=== PATIENT | female | born 2000 | race Caucasian/White ===

== ENCOUNTER 2023-12-10 14:30 | Outpatient (AMB) | payer OTHER, SELFPAY ==
--- NOTE | 2023-12-10 14:35 | MHC.PC.OV ---
Vital Signs 12/10/23 14:44 Height 5 ft 3.11 in Weight 150 lb 6 oz BMI 26.5 BP 119/87 Blood Pressure Location Lt brachial Position Sitting Respiration 14 Pulse 102 H Pulse Source Pulse Oximeter Temp 97.3 F Temp Source Temporal Artery Scan Pulse Oximetry (%) 99 Oxygen Delivery Method Room Air Intake Visit Reasons: Establish Care not a transfer Intake Note: New patient visit Classification Analyst Required: No Allergies No Known Allergies Allergy (Verified 12/10/23 14:35) Medication List - Last Reconciled 12/10/23 by Asiya Chris PA-C albuterol sulfate 90 mcg/actuation 2 puffs inhalation Q6H PRN tgnuyqufgne-kehpmkjvo-uddxudwc 200-62.5-25 mcg (Trelegy Ellipta) 1 ea inhalation DAILY levocetirizine (Xyzal) 5 mg PO DAILY norethindrone ac-eth estradiol 1-20 mg-mcg (Junel) 1 tab PO DAILY omalizumab (Xolair) mg subcut Tobacco use date assessed: 12/10/23 Dental Screening Dental Screen Date: 12/10/23 Did you have a dental visit in the last 12 months?: Yes Did you have a dental problem in the last 6 months where you did not have access to dental care?: No Was dental information given to patient?: Patient has dentist HPI Establish Care not a transfer HPI Details Pt is a 23 y/o female who presents today to establish care. She states she is transferring from [facility]. She states that she numerous allergies, asthma, insomnia, adhd, depression and anxiety. Allergy/immunology: follows with KARTHIK for numerous allergies and asthma. Psych: she states she has insomnia, adhd, anxiety and depression. She had a seizure on 600 mg of wellbutrin. She did not tolerate fluoxetine. She trialed straterra which is ineffective. She has taken trazodone for sleep which was not that helpful. She finds THC and melatonin work better. General: She states her mom was recently dx with diabetes and she is worried she could have diabetes. She used her moms glucometer and the at reading was just above 100. She states that she gets tired throughout the day and then will eat something and feel more energetic. 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 She has never had a pap. 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 [facility] Medical History (Updated 12/10/23 @ 15:26 by Asiya Chris PA-C) Moderate asthma with allergic rhinitis without complication Family History (Updated 12/10/23 @ 14:42 by Marely Nino CMA) Paternal Uncle Substance use Depression Anxiety Father Depression Anxiety Paternal Aunt Depression Anxiety Paternal Grandfather Depression Anxiety Paternal Grandmother Depression Anxiety Other FH: mental illness Social History (Updated 12/10/23 @ 14:41 by Marely Nino CMA) Housing: House Patient Tobacco Use Status: Never used Tobacco e-Cigarette/Vaping Use: Never Used Second Hand Smoke Exposure: No Substance Use Type: Marijuana service: No 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 1. Little interest or pleasure in doing things: several days 2. Feeling down, depressed, or hopeless: several days 3. Trouble falling or staying asleep, or sleeping too much: nearly every day 4. Feeling tired or having little energy: nearly every day 5. Poor appetite or overeating: more than half the days 6. Feeling bad about yourself - or that you are a failure or have let yourself or your family down: not at all 7. Trouble concentrating on things, such as reading the newspaper or watching television: nearly every day 8. Moving or speaking so slowly that other people could have noticed. Or the opposite - being so fidgety or restless that you have been moving around a lot more than usual: several days 9. Thoughts that you would be better off or of hurting yourself in some way: not at all Total score: 14 Depression Screening Interpretation: Positive Depression Screening Follow-up: Existing condition Depression Screening Done: Yes 60380 - PHQ-9 Billing: Yes Source: Developed by Drs. Lane Lyn, Summer Garcia, Lavon Abraham and colleagues, with an educational edson from [employer]. AUDIT C Alcohol Use Questionnaire (AUDIT-C) 1. How often do you have a drink containing alcohol?: 2-4 times a month 2. How many drinks containing alcohol do you have on a typical day when you are drinking?: 3 or 4 3. How often do you have six or more drinks on one occasion?: Never Total Score: 3 PAWAN-7 AMB Questionnaire PAWAN-7 Feeling nervous, anxious, or on edge: 1 = Several days Not being able to stop or control worryin = Several days Worrying too much about different things: 1 = Several days Trouble relaxin = Several days Being so restless that it is hard to sit still: 1 = Several days Becoming easily annoyed or irritable: 1 = Several days Feeling afraid as if something awful might happen: 1 = Several days Total PAWAN-7 score (0-4 normal; 5-9 mild; 10-14 moderate; 15-21 severe): 7 Source: Developed by Drs. Lane Lyn, Summer Garcia, Lavon Abraham and colleagues, with an educational edson from [employer]. PAWAN-7 Assessment Billing PAWAN-7 Assessment Tool: PAWAN-7 Assessment 69562 ACT Questionnaire In the past 4 weeks, how much of the time did your asthma keep you from getting as much done at work, school or at home?: A little of the time During the past 4 weeks, how often have you had shortness of breath?: 1-2 times a week During the past 4 weeks, how often did your asthma symptoms wake you up at night or earlier than usual in the morning?: Not at all During the past 4 weeks, how often have you had to use your rescue inhaler or nebulizer medication?: Once a week or less How would you rate your asthma control during the past 4 weeks?: Well controlled ACT Interpretation: Positive Score: 21 Physical exam (Primary Care) Vital Signs: Last Vital Signs Temp 97.3 F 12/10/23 14:44 Pulse 102 H 12/10/23 14:44 Resp 14 12/10/23 14:44 BP 119/87 12/10/23 14:44 Pulse Ox 99 12/10/23 14:44 Oxygen Delivery Method Room Air 12/10/23 14:44 BMI result Body Mass Index 26.5 Tobacco/Smoking Status: Tobacco use Status Tobacco use date assessed 12/10/23 12/10/23 14:49 Patient Tobacco Use Status Never used Tobacco 12/10/23 14:49 e-Cigarette/Vaping Use Never Used 12/10/23 14:49 Depression Screening Interpretation: Positive Depression Screening Follow-up: Existing condition Const Orientation/consciousness: patient oriented x3 HENMT Ears: hearing grossly normal bilaterally Neck Thyroid: Thyroid normal Lymphatic: no lymphadenopathy noted Resp Auscultation: clear to auscultation bilaterally Cardio Rate: regular rate Rhythm: regular rhythm Heart sounds: S1 normal heart sound present and S2 normal heart sound present GI Inspection: Yes normal to inspection Palpation (GI): Soft to palpation and Other GI palpation findings present (nontender, no cva tenderness) Auscultation: normoactive bowel sounds Rectal Exam - Female: deferred Skin General skin exam: no rashes or lesions noted Neuro General: patient oriented x3, gait normal and no focal motor deficits Assessment and Plan Assessment & Plan (1) Fatigue: Code(s): R53.83 - Other fatigue Qualifiers: Fatigue type: chronic, unspecified Qualified Code(s): R53.82 - Chronic fatigue, unspecified Plan: Declines sleep study right now. We did discuss that possibly the THC and melatonin were making her feel tired but she does not think so. She would like labs. Ordered today. We will follow up pending test results. (2) Insomnia: Code(s): G47.00 - Insomnia, unspecified Plan: As above. Offered referral to Psychiatry but declines at this point. (3) Concentration deficit: Code(s): R41.840 - Attention and concentration deficit Plan: As above (4) Anxiety with depression: Code(s): F41.8 - Other specified anxiety disorders Plan: Currently controlled with coping mechanisms. Denies any SI/HI. (5) Multiple environmental allergies: Code(s): Z91.09 - Other allergy status, other than to drugs and biological substances Plan: Continue following up with Allergy and immunology (6) Moderate asthma with allergic rhinitis without complication: Code(s): J45.909 - Unspecified asthma, uncomplicated Qualifiers: Asthma persistence: persistent Qualified Code(s): J45.40 - Moderate persistent asthma, uncomplicated Plan: As above (7) IFG (impaired fasting glucose): Code(s): R73.01 - Impaired fasting glucose Plan: Labs ordered today including A1c. Orders: Orders Complete Blood Count Auto Diff Today F41.8 - Other specified anxiety disorders, G47.00 - Insomnia, unspecified, J45.909 - Unspecified asthma, uncomplicated, R41.840 - Attention and concentration deficit, R53.83 - Other fatigue, Z91.09 - Other allergy status, other than to drugs and biological substances Comprehensive [place]. Panel Fast Today F41.8 - Other specified anxiety disorders, G47.00 - Insomnia, unspecified, J45.909 - Unspecified asthma, uncomplicated, R41.840 - Attention and concentration deficit, R53.83 - Other fatigue, Z91.09 - Other allergy status, other than to drugs and biological substances Ferritin Today F41.8 - Other specified anxiety disorders, G47.00 - Insomnia, unspecified, J45.909 - Unspecified asthma, uncomplicated, R41.840 - Attention and concentration deficit, R53.83 - Other fatigue, Z91.09 - Other allergy status, other than to drugs and biological substances Lipid Panel Today F41.8 - Other specified anxiety disorders, G47.00 - Insomnia, unspecified, J45.909 - Unspecified asthma, uncomplicated, R41.840 - Attention and concentration deficit, R53.83 - Other fatigue, Z91.09 - Other allergy status, other than to drugs and biological substances Vitamin B12 and Folate Today F41.8 - Other specified anxiety disorders, G47.00 - Insomnia, unspecified, J45.909 - Unspecified asthma, uncomplicated, R41.840 - Attention and concentration deficit, R53.83 - Other fatigue, Z91.09 - Other allergy status, other than to drugs and biological substances IRON PROFILE Today F41.8 - Other specified anxiety disorders, G47.00 - Insomnia, unspecified, J45.909 - Unspecified asthma, uncomplicated, R41.840 - Attention and concentration deficit, R53.83 - Other fatigue, Z91.09 - Other allergy status, other than to drugs and biological substances Cortisol Random Today F41.8 - Other specified anxiety disorders, G47.00 - Insomnia, unspecified, J45.909 - Unspecified asthma, uncomplicated, R41.840 - Attention and concentration deficit, R53.83 - Other fatigue, Z91.09 - Other allergy status, other than to drugs and biological substances Hemoglobin A1c Today F41.8 - Other specified anxiety disorders, G47.00 - Insomnia, unspecified, J45.909 - Unspecified asthma, uncomplicated, R41.840 - Attention and concentration deficit, R53.83 - Other fatigue, R73.01 - Impaired fasting glucose, Z91.09 - Other allergy status, other than to drugs and biological substances Magnesium Today F41.8 - Other specified anxiety disorders, G47.00 - Insomnia, unspecified, J45.909 - Unspecified asthma, uncomplicated, R41.840 - Attention and concentration deficit, R53.83 - Other fatigue, Z91.09 - Other allergy status, other than to drugs and biological substances TSH reflex Free T4 Today F41.8 - Other specified anxiety disorders, G47.00 - Insomnia, unspecified, J45.909 - Unspecified asthma, uncomplicated, R41.840 - Attention and concentration deficit, R53.83 - Other fatigue, Z91.09 - Other allergy status, other than to drugs and biological substances Vitamin D 1,25 dihydroxy Today F41.8 - Other specified anxiety disorders, G47.00 - Insomnia, unspecified, J45.909 - Unspecified asthma, uncomplicated, R41.840 - Attention and concentration deficit, R53.83 - Other fatigue, Z91.09 - Other allergy status, other than to drugs and biological substances Insulin Today F41.8 - Other specified anxiety disorders, G47.00 - Insomnia, unspecified, J45.909 - Unspecified asthma, uncomplicated, R41.840 - Attention and concentration deficit, R53.83 - Other fatigue, Z91.09 - Other allergy status, other than to drugs and biological substances Referrals PLAYGROUND DIRECTOR Referral Z01.419 - Encounter for gynecological examination (general) (routine) without abnormal findings Podiatry Referral M21.41 - Flat foot [pes planus] (acquired), right foot, M21.42 - Flat foot [pes planus] (acquired), left foot Coding Level of Care Code New Pt Level 4 (57044) Complex EM visit Add On G2211 Diagnoses Chronic fatigue R53.82 Fatigue type: chronic, unspecified Insomnia G47.00 Concentration deficit R41.840 Anxiety with depression F41.8 Multiple environmental allergies Z91.09 Moderate persistent asthma with allergic rhinitis without complication J45.40 Asthma persistence: persistent IFG (impaired fasting glucose) R73.01 Additional Codes PAWAN-7 Assessment Billing - PAWAN-7 Assessment Tool: PAWAN-7 Assessment 07647 ([id number])
[2023-12-10 14:44] VITALS: BP 119/87; PULSE 102; RESP 14; TEMP 36.3; O2SAT 99; BMI 26.5
== END 2023-12-10 15:24 | disposition home or self-care (01) ==
PROVIDERS: Visit Provider Physician Assistant
DX: R53.82 Chronic fatigue, unspecified (principal); G47.00 Insomnia, unspecified; R41.840 Attention and concentration deficit; F41.8 Other specified anxiety disorders; Z91.09 Other allergy status, other than to drugs and biological substances; J45.40 Moderate persistent asthma, uncomplicated; R73.01 Impaired fasting glucose
CPT/HCPCS: 99204

== ENCOUNTER 2023-12-11 10:43 | Outpatient (REF) | payer OTHER, SELFPAY ==
[2023-12-11 14:20] LABS: MANUAL DIFF FLAG NO
[2023-12-11 14:24] LABS: Basophils Percent Auto 0.5 % (0-2); Eosinophils Absolute Auto 0.3 X10*3/uL (0.0-0.4); Eosinophils Percent Auto 4.4 % (0-4); Hematocrit 43.7 % (37.0-47.0); Hemoglobin 14.8 g/dl (12.0-16.0); Imm Gran Abs Auto 0.04 X10*3/uL (0.00-0.03); Imm Gran Pct Auto 0.5 % (0.0-0.4); Lymphocytes Percent Auto 38.6 % (20-40); Mean Corpuscular HGB Conc 33.9 g/dl (31.0-35.0); Mean Corpuscular Hemoglobin 30.1 pg (27.0-33.0); Mean Corpuscular Volume 88.8 fL (80.0-98.0); Monocytes Absolute Auto 0.5 X10*3/uL (0.1-1.2); Monocytes Percent Auto 5.9 % (2-11); NRBC Pct Auto 0.3 /100WBC (0.0-0.2); Neutrophils Absolute Auto 3.8 x10*3/uL (2.0-8.3); Neutrophils Percent Auto 50.1 % (45-73); Platelet Count 302 X10*3/uL (160-400); Red Blood Count 4.92 X10*6/uL (4.20-5.50); White Blood Count 7.7 X10*3/uL (4.8-10.8)
[2023-12-11 14:40] LABS: Estimated Average Glucose 126 mg/dL
[2023-12-11 14:47] LABS: Alanine Aminotransferase 30 U/L (0-31); Albumin Level 4.1 g/dL (3.5-5.0); Alkaline Phosphatase 57 U/L (39-117); Anion Gap 14 (12-20); Aspartate Amino Transferase 20 U/L (5-31); Bilirubin Total 0.7 mg/dL (0.0-1.0); Blood Urea Nitrogen 14 mg/dL (9-16); Calcium 9.3 mg/dL (8.4-10.2); Carbon Dioxide 23 mmol/L (22-29); Chloride 105 mmol/L (96-108); Cholesterol 280 mg/dL (<200); Estimated Glomerular Filt Rate > 60; Glucose Fasting 101 mg/dL (60-99); HDL Cholesterol 44 mg/dL (>40); Iron 139 mcg/dL (30-160); LDL Cholesterol Calculated 189 mg/dL (<100); Magnesium 2.1 mg/dL (1.6-2.6); Percent Iron Saturation 38 % (15-50); Potassium 3.8 mmol/L (3.3-5.1); Sodium 138 mmol/L (135-145); Total Iron Binding Capacity 365 mcg/dL (228-428); Total Protein 7.6 g/dL (6.5-8.0); Triglycerides 239 mg/dL (<150); Unsaturated Iron Binding 226 ug/dL
[2023-12-11 15:09] LABS: Ferritin 115 ng/mL (10-122); Insulin 13 uU/mL (2-29); TSH reflex Free T4 1.76 uIU/mL (0.32-4.0)
[2023-12-11 15:12] LABS: Folate 7.6 ng/mL (> or = 4.0); Vitamin B12 261 pg/mL (200-900)
[2023-12-11 15:20] LABS: Cortisol Random 14.4 ug/dL
[2023-12-16 17:23] LABS: VITAMIN D (1,25 OH) D3 57 pg/mL; Vit D (1,25-Dihydroxy) Total 57 pg/mL (18-72); Vitamin D (1,25 OH) D2 <8 pg/mL
== END 2023-12-11 10:44 | disposition home or self-care (01) ==
LOC: HO.WFDLDS 10:43
PROVIDERS: Visit Provider Physician Assistant
DX: R53.83 Other fatigue (principal); G47.00 Insomnia, unspecified; R41.840 Attention and concentration deficit; F41.8 Other specified anxiety disorders; Z91.09 Other allergy status, other than to drugs and biological substances; J45.909 Unspecified asthma, uncomplicated; R73.01 Impaired fasting glucose
CPT/HCPCS: 36415; 80053; 80061; 82533; 82607; 82652; 82728; 82746; 83036; 83525; 83540; 83735; 84443; 85025

== ENCOUNTER 2024-03-11 15:08 | Outpatient (AMB) | payer OTHER, SELFPAY ==
[2024-03-11 15:23] VITALS: BP 106/64; PULSE 80; RESP 14; BMI 26.9
--- NOTE | 2024-03-11 15:23 | MHC.PC.OV ---
Vital Signs 03/11/24 15:23 Height 5 ft 3 in Weight 152 lb BMI 26.9 BP 106/64 Blood Pressure Location Rt brachial Position Sitting Respiration 14 Pulse 80 Pulse Source Auscultation Intake Visit Reasons: f/u labs and fatigue, Physical Allergies No Known Allergies Allergy (Verified 12/10/23 14:35) Medication List - Last Reconciled 03/11/24 by Asiya Chris PA-C albuterol sulfate 90 mcg/actuation 2 puffs inhalation Q6H PRN cyanocobalamin (vitamin B-12) 1,000 mcg PO DAILY bseutfhigmb-qmtpvobxj-qnymyvhi 200-62.5-25 mcg (Trelegy Ellipta) 1 ea inhalation DAILY levocetirizine (Xyzal) 5 mg PO DAILY norethindrone ac-eth estradiol 1-20 mg-mcg (Junel) 1 tab PO DAILY omalizumab (Xolair) mg subcut Tobacco use date assessed: 12/10/23 Dental Screening Dental Screen Date: 12/10/23 HPI f/u labs and fatigue, Physical HPI Details Patient is a 24-year-old female who presents today for a physical exam. She has a history of hyperlipidemia, B12 deficiency, impaired fasting glucose, asthma, environmental allergies and anxiety with depression. 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 States that she is feeling a lot better. Most of her stressors right now are figuring out a new job and/or going back to school. She also was interested in moving to [place]. She states she is thinking about doing graduate school there. PULM: Asthma is currently well-controlled with current regimen. CV: She has somewhat been following a low-fat diet but not overly. She says that she could do better with this. She did eat Vietnamese food last night but is interested to know what her cholesterol looks like. 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 [facility] Medical History (Updated 03/11/24 @ 15:30 by Asiya Chris PA-C) Moderate asthma with allergic rhinitis without complication Family History (Updated 12/10/23 @ 14:42 by Marely Nino CMA) Paternal Uncle Substance use Depression Anxiety Father Depression Anxiety Paternal Aunt Depression Anxiety Paternal Grandfather Depression Anxiety Paternal Grandmother Depression Anxiety Other FH: mental illness Social History (Updated 12/10/23 @ 14:41 by INOCENCIO Lewis Housing: House Patient Tobacco Use Status: Never used Tobacco e-Cigarette/Vaping Use: Never Used Second Hand Smoke Exposure: No Substance Use Type: Marijuana service: No 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 1. Little interest or pleasure in doing things: several days 2. Feeling down, depressed, or hopeless: several days 3. Trouble falling or staying asleep, or sleeping too much: several days 4. Feeling tired or having little energy: several days 5. Poor appetite or overeating: not at all 6. Feeling bad about yourself - or that you are a failure or have let yourself or your family down: not at all 7. Trouble concentrating on things, such as reading the newspaper or watching television: several days 8. Moving or speaking so slowly that other people could have noticed. Or the opposite - being so fidgety or restless that you have been moving around a lot more than usual: not at all 9. Thoughts that you would be better off or of hurting yourself in some way: not at all Total score: 5 Depression Screening Interpretation: Positive Depression Screening Follow-up: Existing condition and Declines treatment Depression Screening Done: Yes 27448 - PHQ-9 Billing: Yes Source: Developed by Drs. Lane Lyn, Summer Garcia, Lavon Abraham and colleagues, with an educational edson from [employer]. Thrive Questionnaire I am a: Patient What is your living situation today?: I have a steady place to live Within the past 12 months, did the food you bought not last and you didn't have the money to get more?: Never true Within the past 12 months, did you worry whether your food would run out before you got money to buy more?: Never true Do you have trouble paying for medicines?: No Do you have trouble getting transportation to medical appointments?: No Do you have trouble paying your heating and electricity bill?: No Do you have trouble taking care of your child, family member or friend?: No Do you have trouble with day-to-day activities such as bathing, preparing meals, shopping, managing finances, etc.?: No Are you currently unemployed and looking for a job?: Yes Are you interested in more education?: Yes Please select the resources that you would like help with: None Currently or been in a relationship where the following occur: No concerns reported THRIVE Score: 0 AUDIT C Alcohol Use Questionnaire (AUDIT-C) 1. How often do you have a drink containing alcohol?: Monthly or less 2. How many drinks containing alcohol do you have on a typical day when you are drinking?: 1 or 2 3. How often do you have six or more drinks on one occasion?: Never Total Score: 1 PAWAN-7 AMB Questionnaire PAWAN-7 Feeling nervous, anxious, or on edge: 3 = Nearly every day Not being able to stop or control worryin = Nearly every day Worrying too much about different things: 3 = Nearly every day Trouble relaxin = Nearly every day Being so restless that it is hard to sit still: 3 = Nearly every day Becoming easily annoyed or irritable: 3 = Nearly every day Feeling afraid as if something awful might happen: 2 = More than half the days Total PAWAN-7 score (0-4 normal; 5-9 mild; 10-14 moderate; 15-21 severe): 20 Source: Developed by Drs. Lane Lyn, Summer Garcia, Lavon Abraham and colleagues, with an educational edson from [employer]. PAWAN-7 Assessment Billing PAWAN-7 Assessment Tool: PAWAN-7 Assessment 44789 Physical exam (Primary Care) Tobacco/Smoking Status: Tobacco use Status Tobacco use date assessed 12/10/23 12/10/23 14:49 Patient Tobacco Use Status Never used Tobacco 12/10/23 14:49 e-Cigarette/Vaping Use Never Used 12/10/23 14:49 Depression Screening Interpretation: Positive Depression Screening Follow-up: Existing condition and Declines treatment Currently or been in a relationship where the following occur: No concerns reported Const Orientation/consciousness: patient oriented x3 HENMT Ears: hearing grossly normal bilaterally and TM's normal bilaterally General nose exam: No nasal polyps present Face and sinus: Yes sinuses nontender Mouth: Normal oral and palatal mucosa present Eyes Pupils: Equal, round and reactive pupils present EOM: EOMs intact bilaterally Neck Neck: Yes full ROM and Yes no lymphadenopathy Thyroid: Thyroid normal Chest Chest palpation & inspection: normal inspection of the chest Breast/axilla inspection: normal inspection of the breasts and normal inspection of the axillae Breast/axilla palpation: normal palpation of the breasts, normal palpation of the axillae and no axillary lymphadenopathy Resp Auscultation: clear to auscultation bilaterally Cardio Rate: regular rate Rhythm: regular rhythm Heart sounds: S1 normal heart sound present and S2 normal heart sound present Peripheral pulses: Peripheral pulses 2+ throughout GI Other: Soft, nontender Auscultation: normal bowel sounds Rectal Exam - Female: deferred General: Yes no CVA tenderness Back/Spine/Pelvis Other: Nontender Back: no CVA tenderness Skin General skin exam: no rashes or lesions noted Neuro General: patient oriented x3, gait normal, CN's II-XI intact bilaterally and deep tendon reflexes 2+ bilaterally Cranial nerves: Yes Equal, round and reactive pupils present Motor exam (neuro): 5/5 motor strength present throughout Sensory Exam: double simultaneous stimulation for sensation normal Coordination: cnaxon-ae-tire test normal and Romberg test negative Extrem General: Yes normal to inspection and Yes full ROM Psych Affect: normal affect Attitude: cooperative Thought process: Normal thought process present Thought content: Normal thought content present Insight: Good insight present (Psych) Judgement: Good judgement present (Psych) Coding Level of Care Code Est Pt Prev Care 18-39y(77771) Diagnoses Routine general medical examination at a health care facility Z00.00 B12 deficiency E53.8 Dyslipidemia E78.5 Anxiety with depression F41.8 Additional Codes PHQ-9 - 75024 - PHQ-9 Billing: Yes ([id number]) PAWAN-7 Assessment Billing - PAWAN-7 Assessment Tool: PAWAN-7 Assessment 63917 ([id number]) Assessment & Plan Assessment & Plan (1) Routine general medical examination at a health care facility: Code(s): Z00.00 - Encounter for general adult medical examination without abnormal findings Plan: Health maintenance reviewed. Flu shot today (2) B12 deficiency: Code(s): E53.8 - Deficiency of other specified B group vitamins Category: Medical Plan: Compliant with supplement. Advised to recheck CBC (3) Dyslipidemia: Code(s): E78.5 - Hyperlipidemia, unspecified Category: Medical Plan: Reports somewhat improvement of her diet in his interested to see how her cholesterol looks. (4) Anxiety with depression: Code(s): F41.8 - Other specified anxiety disorders Category: Medical Plan: Has trialed medications in the past and does not feel like she needs anything now. She recently left her job that was exacerbating her anxiety and depression and is going to try to move to [place]. Orders: Orders Lipid Panel Today E53.8 - Deficiency of other specified B group vitamins, E78.5 - Hyperlipidemia, unspecified
== END 2024-03-11 15:46 | disposition home or self-care (01) ==
PROVIDERS: PCP Physician Assistant; Visit Provider Physician Assistant
DX: Z00.00 Encounter for general adult medical examination without abnormal findings (principal); E53.8 Deficiency of other specified B group vitamins; E78.5 Hyperlipidemia, unspecified; F41.8 Other specified anxiety disorders

== ENCOUNTER → 2024-03-11 15:08 | Outpatient (BNVA) | payer OTHER, SELFPAY | PROVIDERS: PCP Physician Assistant; Visit Provider Physician Assistant | DX: Z00.00 Encounter for general adult medical examination without abnormal findings (principal); E53.8 Deficiency of other specified B group vitamins; E78.5 Hyperlipidemia, unspecified; F41.8 Other specified anxiety disorders | CPT/HCPCS: 96127 ==

== ENCOUNTER 2024-03-24 14:32 | Outpatient (AMB) | payer OTHER, SELFPAY ==
[2024-03-24 14:34] VITALS: BP 116/66; BMI 26.9
--- NOTE | 2024-03-24 14:34 | A.OFFVIS_ITS ---
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: No Manufacturing Plant Technician Services: Manufacturing Plant Technician Present Information Interpreted: clinical only Senior Interaction Designer: Senior Interaction Designer Present Allergies No Known Allergies Allergy (Verified 03/24/24 14:37) Medication List - Last Reconciled 03/24/24 by Payton Alvarez CNM albuterol sulfate 90 mcg/actuation 2 puffs inhalation Q6H PRN cyanocobalamin (vitamin B-12) 1,000 mcg PO DAILY iyfjizdluyy-jqrjeycsp-xqobsisj 200-62.5-25 mcg (Trelegy Ellipta) 1 ea inhalation DAILY levocetirizine (Xyzal) 5 mg PO DAILY norethindrone ac-eth estradiol 1-20 mg-mcg (Junel) 1 tab PO DAILY omalizumab (Xolair) mg subcut Is last menstrual period known: Yes Last menstrual period: 03/01/24 HPI HPI New patient Annual: Details: 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 She is very certain that she does ever had kids so she wants to talk about methods of control and especially is concerned about access to control should things change with a coming administration. She recently found out that she is in fact prediabetic than so she is trying to work on diet. She has to be very skinny is a kid and did vena how it when she on control sexually active and went to college etc.. 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 she does note for herself that she feels lots of changes that go on for her with her mental health with her periods and she is very sensitive and tuned in. She has been on control pills for about 7 years now and feels that she is very good at taking on time and does not miss a pill and she typically takes them and always has taken them for 3 weeks continuous and then does not take placebo pills for the last week and then restarts the new pack exactly on time 7 days later. 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: unknown, starting Friday Cognitive needs: No Hearing needs: No Vision needs: No Female Reproductive History Menstrual Age of Menarche: 12 Duration of menses: 3-5 days Date of last menstrual period: 03/01/24 control method: pills Total pregnancies: 0 Full term: 0 History of abnormal pap smear: No (no previous pap) Physical Exam Vital Signs: Last Vital Signs BP 116/66 03/24/24 14:34 BMI result Body Mass Index 26.9 Const General: healthy appearing, comfortable, no acute distress, well developed and alert Nutritional Appearance: average body habitus Orientation/consciousness: patient oriented x3 Limitations: no limitations HEENT Head: Yes normocephalic Neck Neck: Yes normal visual inspection Chest Chest palpation & inspection: normal inspection of the chest Breast/axilla inspection: normal inspection of the breasts and normal inspection of the axillae Breast/axilla palpation: normal palpation of the breasts and normal palpation of the axillae Resp Effort & Inspection: normal respiratory effort GI Inspection: Yes normal to inspection, No Abdominal wall edema and No distended Palpation (GI): Soft to palpation and nontender Other: Normal external exam vagina and moist cervix is nulliparous white reddened normal appearing mucus the abundant cervix long close the nontender uterus midposition nontender not enlarged adnexa nontender nonenlarged extremely good with Kegel, General: Yes bladder normal to palpation External Female Exam: normal external appearance and normal appearance of the urethra Speculum Exam - Vagina: normal appearance of the vagina, normal palpation and normal vaginal discharge Speculum Exam - Cervix: normal appearance of the cervix, normal palpation and nontender Bimanual exam- vagina & uterus: normal bimanual exam, normal palpation, uterine size normal, bladder normal to palpation, consistency normal, normal palpation, uterine mobility normal, uterine shape normal, No Cervical tenderness present, non-tender and no cervical motion tenderness Bimanual Exam- Adnexa, other: normal adnexae, no masses, normal and No adnexal tenderness Neuro General: patient oriented x3 Assessment & Plan Assessment & Plan (1) Encounter for screening examination for sexually transmitted disease: Code(s): Z11.3 - Encounter for screening for infections with a predominantly sexual mode of transmission Category: Medical (2) control counseling: Code(s): Z30.09 - Encounter for other general counseling and advice on contraception Category: Medical (3) Well woman exam with routine gynecological exam: Code(s): Z01.419 - Encounter for gynecological examination (general) (routine) without abnormal findings Category: Medical (4) Cervical cancer screening: Code(s): Z12.4 - Encounter for screening for malignant neoplasm of cervix Category: Medical (5) IFG (impaired fasting glucose): Code(s): R73.01 - Impaired fasting glucose Category: Medical Plan -----Discussed in this visit the following: healthy balanced diet, regular and consistent exercise, getting recommended health screens, doing the best she can for her particular health concerns, kegel exercises, pap smear screening and followup recommendations, mammography screening and SBE, normal changes in cycles in her life stage--- .-I reviewed with the patient, all of the currently common used methods of control that are available. We reviewed how they work in the body, how they are taken, common side effects, uncommon side effects, precautions, and contraindications. -Discussed also factors that influence their effectiveness and use, and womens satisfaction with the method. -Discussed how each are used, and drawbacks of each method as well. -Methods covered included: condoms, control pills, control patches, control rings, Depo-Provera, Nexplanon, Mirena and Kyleena IUDs, and ParaGard IUDs. All of the above methods were covered in great detail including their side effect profiles and common experiences that women have and ways to mitigate against the negative experiences including attention to diet and exercise patient's with bleeding challenges that may occur her and efforts to time the initiation of the method to this start of the menstrual period. Extensive discussion took place then about options for now. We went back and forth about whether not she wanted to stay pills she is on or consider trying something with a very very slightly higher dose of either estrogen progesterone to see if it would ameliorate her periods somewhat she still has to use super tampons. Additionally we discussed the option for long-term use of either a Mirena Kyleena and her cervix was not as tiny and nulliparous as 1 might expect and therefore a Mirena might well be an option for her to consider down road and she is going to think about it also discussed the insertion process in great detail and why it is year and best for her and the provider to insert it as close to the beginning of menses as possible when it is the heaviest additionally discussed the addition use of misoprostol placed vaginally 6 hours before insertion with an additional dose 2 hours before if there is not sufficient cramping. Discussed that this often the insertion process more tolerable as well as ibuprofen for cramps. In the end decision made to change her OCP to a slightly different formulation to see if this would make any difference whatsoever for her and she is going to consider her options she has extra OC packs available to her as well that she may continue with for a while we will see her in 1 year I her to call if she has any difficulties or wants to switch back to what she was originally on. Orders placed for screening for STIs blood work and she getting her fasting blood it for her PCC soon and I added a thyroid level to that as well. Orders: Orders Hepatitis B Surface Antigen Today Z01.419 - Encounter for gynecological examination (general) (routine) without abnormal findings, Z11.3 - Encounter for screening for infections with a predominantly sexual mode of transmission, Z12.4 - Encounter for screening for malignant neoplasm of cervix, Z30.09 - Encounter for other general counseling and advice on contraception Pap Smear Today Z01.419 - Encounter for gynecological examination (general) (routine) without abnormal findings Hepatitis C Antibody Today Z01.419 - Encounter for gynecological examination (general) (routine) without abnormal findings, Z11.3 - Encounter for screening for infections with a predominantly sexual mode of transmission, Z12.4 - Encounter for screening for malignant neoplasm of cervix, Z30.09 - Encounter for other general counseling and advice on contraception HIV Ab/Ag Today Z01.419 - Encounter for gynecological examination (general) (routine) without abnormal findings, Z11.3 - Encounter for screening for infections with a predominantly sexual mode of transmission, Z12.4 - Encounter for screening for malignant neoplasm of cervix, Z30.09 - Encounter for other general counseling and advice on contraception Thyroid Stimulating Hormone Today Z01.419 - Encounter for gynecological exam ination (general) (routine) without abnormal findings, Z11.3 - Encounter for screening for infections with a predominantly sexual mode of transmission, Z12.4 - Encounter for screening for malignant neoplasm of cervix, Z30.09 - Encounter for other general counseling and advice on contraception Syphilis Screen Today Z01.419 - Encounter for gynecological examination (genera l) (routine) without abnormal findings, Z11.3 - Encounter for screening for infections with a predominantly sexual mode of transmission, Z12.4 - Encounter for screening for malignant neoplasm of cervix, Z30.09 - Encounter for other general counseling and advice on contraception CT NG by PCR Today N89.8 - Other specified noninflammatory disorders of vagina, Z20.2 - Contact with and (suspected) exposure to infections with a predominantly sexual mode of transmission Bacterial Vaginosis Panel Today N89.8 - Other specified noninflammatory disord ers of vagina Medications: New desog-e.estradiol/e.estradiol 0.15-0.02 mgx21 /0.01 mg x 5 1 tab PO DAILY 84 tabs 0RF Coding Level of Care Code New Pt Prev Care 18-39yr([id number] Diagnoses Encounter for screening examination for sexually transmitted disease Z11.3 control counseling Z30.09 Well woman exam with routine gynecological exam Z01.419 Cervical cancer screening Z12.4 IFG (impaired fasting glucose) R73.01
== END 2024-03-24 15:37 | disposition home or self-care (01) ==
LOC: HO.HWSM 14:32
PROVIDERS: PCP Physician Assistant; Visit Provider Advanced Practice Midwife
DX: Z01.419 Encounter for gynecological examination (general) (routine) without abnormal findings (principal); Z11.3 Encounter for screening for infections with a predominantly sexual mode of transmission; Z30.09 Encounter for other general counseling and advice on contraception; Z12.4 Encounter for screening for malignant neoplasm of cervix; R73.01 Impaired fasting glucose
CPT/HCPCS: 99385

== ENCOUNTER 2024-03-24 14:32 | Outpatient (REF) | payer OTHER, SELFPAY | END 2024-03-24 14:33 | disposition home or self-care (01) | LOC: HO.LNP 14:32 | PROVIDERS: PCP Physician Assistant; Visit Provider Advanced Practice Midwife | DX: Z01.419 Encounter for gynecological examination (general) (routine) without abnormal findings (principal) | CPT/HCPCS: 88175 ==

== ENCOUNTER 2024-03-24 15:34 | Outpatient (REF) | payer OTHER, SELFPAY ==
[2024-03-25 02:36] LABS: CT PCR NOT DETECTED (Not Detect.); NG PCR NOT DETECTED (Not Detect.)
[2024-03-25 10:07] LABS: Bacterial Vaginosis PCR NEGATIVE (Negative); Candida Group PCR NOT DETECTED (Not Detect); Candida glab krusei PCR NOT DETECTED (Not Detect); Trichomonas vaginalis PCR NOT DETECTED (Not Detect)
== END 2024-03-24 15:35 | disposition home or self-care (01) ==
LOC: HO.LAB 15:34
PROVIDERS: Visit Provider Advanced Practice Midwife
DX: Z01.419 Encounter for gynecological examination (general) (routine) without abnormal findings (principal); N89.8 Other specified noninflammatory disorders of vagina; Z20.2 Contact with and (suspected) exposure to infections with a predominantly sexual mode of transmission
CPT/HCPCS: 0352U; 87491; 87591

== ENCOUNTER 2025-02-10 09:37 | Outpatient (AMB) | payer OTHER, SELFPAY ==
--- NOTE | 2025-02-10 09:40 | A.OFFVIS_ITS ---
Vital Signs 02/10/25 09:57 Height 5 ft 3 in Weight 125 lb BMI 22.1 BP 102/70 Intake Visit Reasons: BC Image Editor: Image Editor Present (Princess) Accompanied by: Self / Same As Patient Allergies No Known Allergies Allergy (Verified 03/24/24 14:37) Medication List - Last Reconciled 02/10/25 by Payton Alvarez CNM albuterol sulfate 90 mcg/actuation 2 puffs inhalation Q6H PRN albuterol sulfate 2.5 mg (3 mL) inhalation Q4-6H PRN 30 days cyanocobalamin (vitamin B-12) 1,000 mcg PO DAILY desog-e.estradiol/e.estradiol 0.15-0.02 mgx21 /0.01 mg x 5 1 tab PO DAILY gwytriwffse-hazaorxvr-ukfooctd 200-62.5-25 mcg (Trelegy Ellipta) 1 ea inhalation DAILY levocetirizine (Xyzal) 5 mg PO DAILY norethindrone ac-eth estradiol 1-20 mg-mcg (Junel) 1 tab PO DAILY omalizumab (Xolair) mg subcut Is last menstrual period known: Yes Last menstrual period: 01/27/25 Post menopausal: No Patient : No HPI HPI BC: Details: Patient is here to discuss the control pills. She switched control pill formulations last year and she feels that her period is not as dependable in that it comes after she expects with a week of pills and it is she would like to go back to the which was the formulation she was on before and she actually would like to be on the 21 day pills and she did well always skipping the week and that served her well and she would like to go back to that.. She also wanted to talk about the thinning of her hair on her scalp often noticed so at the crown of her head though it is not as visible there today it is a little bit visible at the very top of her head and frontally. I offered testing for testosterone and TSH and CBC just because of her heavy periods though she had a normal CBC and TSH last year. But then she reconsidered because she has just changed insurances and she wants to be very judicious about getting her lab work and any testing and appointments done she will be seeing her primary care provider in February and she has an appointment with me for an annual in March so I recommend she continue this discussion with her primary care provider and consider whether not endocrinology would be a good referral for her and a we will see what other things there are to address at the next visit when I see her. I recommend she finish out what ever pack she is on she is more than shelter through and then start fresh with a new OCPs as appropriate. [facility] Medical History Moderate asthma with allergic rhinitis without complication Family History Paternal Uncle Substance use Depression Anxiety Father Depression Anxiety Paternal Aunt Depression Anxiety Paternal Grandfather Depression Anxiety Paternal Grandmother Depression Anxiety Other FH: mental illness Social History Housing: House Patient Tobacco Use Status: Never used Tobacco e-Cigarette/Vaping Use: Never Used Second Hand Smoke Exposure: No Substance Use Type: Marijuana Patient : No service: No Current occupational status: employed Current occupation: unknown, starting Friday Cognitive needs: No Hearing needs: No Vision needs: No Female Reproductive History Menstrual Age of Menarche: 12 Date of last menstrual period: 01/27/25 control method: pills Physical Exam Vital Signs: Last Vital Signs BP 102/70 02/10/25 09:57 BMI result Body Mass Index 22.1 Results Reviewed Results Reviewed: Name: Annia Frias Age/Sex: 24/F Attending: Payton Alvarez CNM : 2000 Submitted by: Payton Alvarez CNM Copies to: [facility] MR #: [id number] Status: DEP REF Collected: 03/24/24 Location: [facility] Received: 03/29/24 Interpretation Satisfactory for evaluation. Negative for intraepithelial lesion or malignancy. Obscuring inflammation. Clinical Information LMP: No previous PAP Previous PAP test: Unknown findings Material Received ThinPrep-Cervical Copies To Kp [facility] Endocrinology [address] [place] [address] [email or web address] Payton Alvarez CNM [facility] Women's Services [address] [facility] [place] [address] Electronically Signed By: GWYN Crenshaw (ASCP) 04/01/24 1021 As of February 18, 2024, the technical services to include automated prescreening performed by the ThinPrep Imaging System, PAP screening and HPV testing will be performed at [facility] (CLIA #[id number]), [address] [place] [address]. Testing for HPV was performed using the [employer] CHEKO 6800 system. The presence of HPV in the female genital tract is associated with a number of diseases, including cervical carcinoma. The HPV DNA high risk pool tests for HPV 31, 33, 35, 39, 45, 51, 52, 56, 58, 59, 66 and 68. The testing for HPV 16 and 18 genotypes has also been performed. A positive result indicates detection of nucleic acid sequences from one or more subtypes, whereas a negative result indicates such sequences were not detected. All professional services are performed by [facility] ([address] [place] [id number]; ; CLIA #[id number]). Patient: Annia Frias Age/Sex: 24/F MR#: [id number] Page 1 of 2 Gynecologic Cytology [id number] The PAP Test is a screening procedure with the inherent possibility of both false negative and false positive results. Results should be interpreted in the context of historic and current clinical findings. Reliability of the PAP Test is enhanced by performing the test on a regular repetitive basis. Patient: Annia Frias Age/Sex: 24/F MR#: [id number] Assessment & Plan Assessment & Plan (1) IFG (impaired fasting glucose): Code(s): R73.01 - Impaired fasting glucose Category: Medical (2) control counseling: Code(s): Z. - Encounter for other general counseling and advice on contraception Category: Medical (3) Hair thinning: Code(s): L65.9 - Nonscarring hair loss, unspecified Category: Medical Plan Patient is here to discuss the control pills. She switched control pill formulations last year and she feels that her period is not as dependable in that it comes after she expects with a week of pills and it is she would like to go back to the which was the formulation she was on before and she actually would like to be on the 21 day pills and she did well always skipping the week and that served her well and she would like to go back to that.. She also wanted to talk about the thinning of her hair on her scalp often noticed so at the crown of her head though it is not as visible there today it is a little bit visible at the very top of her head and frontally. I offered testing for testosterone and TSH and CBC just because of her heavy periods though she had a normal CBC and TSH last year. But then she reconsidered because she has just changed insurances and she wants to be very judicious about getting her lab work and any testing and appointments done she will be seeing he r primary care provider in February and she has an appointment with me for an annual in March so I recommend she continue this discussion with her primary care provider and consider whether not endocrinology would be a good referral for her and a we will see what other things there are to address at the next visit when I see her. I recommend she finish out what ever pack she is on she is more than shelter through and then start fresh with a new OCPs as appropriate. Medications: New norethindrone ac-eth estradiol 1-20 mg-mcg () 1 tab PO DAILY 63 tabs 4RF Coding Level of Care Code Est Pt Level 3 (61619) Diagnoses IFG (impaired fasting glucose) R73.01 control counseling Z30 Hair thinning L65.9
[2025-02-10 09:57] VITALS: BP 102/70; BMI 22.1
--- OUTSIDE RECORDS SUMMARY | 2025-02-10 11:02 | XMS_ITS | Clinical Summary ---
Author Organization [facility] Address [address] [place] [id number] Phone Care Team Providers Care Sand Plant Attendant Name Role Phone Unavailable Primary Care Provider Unavailabl e Allergies Active Allergy Reactions Criticality Noted Date Comments Environmental 01/16/2017 Animal dander, grass, trees, weeds Food 01/16/2017 Almonds, apples, carrots, fruit skins, green beans Soy Allergy (Obsolete) 01/05/2019 Soy milk Medications triamcinolone 0.1 % cream Apply 0.1 % topically. 3 Active EPINEPHrine 0.3 MG/0.3ML injection syringe use as directed by prescriber 0 9 Active albuterol HFA (Proventil HFA) 108 (90 Base) MCG/ACT inhalerIndication s:Mild persistent asthma without complication Inhale 2 puffs every 4 (four) hours as needed for wheezing or shortness of breath. 1 Units 0 Active fluticasone HFA (Flovent HFA) 110 MCG/ACT inhalerIndication s:Mild persistent asthma, uncomplicated Inhale 1 puff 2 (two) times a day. Rinse mouth with water after use, do not swallow. 1 Units 1 0 Active Junel 05/17 1-20 MG-MCG per tabletIndications :Dysmenorrhea Take 1 tablet by mouth once daily. 84 tablet 3 1 Active Active Problems Problem Noted Date Diagnosed Date Dysmenorrhea 01/05/2019 Irregular periods 10/07/2016 Overview (01/21/2018): Interested in OCP, mom wants to wait Nevus 12/04/2015 Overview (01/20/2018): 3.5 x 2 cm, slightly raised, brown Visual disturbance 02/06/2015 Overview (01/20/2018): Wears contacts Allergic rhinitis 01/20/2015 Overview (01/21/2018): Hasn't done immunotherapy yet (2018) Mild persistent asthma, uncomplicated 01/09/2015 Overview (01/20/2018): Previously followed by Dr Farias. Per Mom, taken off controller meds by Dr Morrison ~03/2016 with plan to start immunotherapy but they have not been able to manage the logistics of that Assessment & Plan (12/07/2019 2:55 PM EDT): Restart flovent if symptoms of asthma increase to more than once weekly. Resolved Problems Problem Noted Date Diagnosed Date Resolved Date Seizure 12/27/2016 01/21/2018 Overview (01/20/2018): likely due to high Welbutrin dose, psychiatry is adjusting medications. No persistent symptoms, no sign of concussion, will follow up with any other concerns Adolescent depression 09/16/20162017 Overview (01/20/2018): 09/15/16: recent hospitalization Followed by Brett Love Immunizations Immunization Administration Dates Next Due DTaP 05/16/2006, 3,2001,06/10,2001 HPV Vaccine 9 Valent 12/04/2015 HPV, Quadrivalent 05/06/2014,02/24/2014 Hep B, ped/adol 2001,2001,2001 Hib (PRP-T) 05/11/2002, 2,2001,04/15 IPV 05/16/2006, 2,2001,04/15 Influenza 06/16/2008,02/18/2004,05/12/2003 Influenza, injectable, quadr ivalent, preservative free 01/21/2018,02/24/2014 Influenza, injectable, trivalent 03/24/2012,12/28 MMR 05/11/2002 MMRV 05/16/2006 Meningococcal Conj (Menactra) MCV4P 01/21/2018,1 Pneumococcal Conjugate 2001,2001, Tdap 02/24/2014 Varicella 02/10/2002 Family History Relation Name Status Comments Father Alive Father: nolvia gates, migraine Father's Sister Paternal Aun t: bipolar Maternal Grandmother Mat GMo ther: rheumatoid arthritis, glaucoma, hearing problem Mother Alive Mother: nolvia gates Other Alive Siblings: siste r Social History Tobacco Use Types Packs/Day Years Used Date Smoking Tobacco: Never Smokeless Tobacco: Never Alcohol Use Standard Drinks/Week Comments No 0 (1 standard drink = 0.6 oz pur e alcohol) Hunger/Food Answer Date Recorded No 01/22/2020 Stable Housing Answer Date Recorded No 01/22/2020 Transportation Concerns Answer Date Rec orded No 01/22/2020 Hazards in Home Answer Date Recorded No 03/09/2020 Financing Utilities Answer Date Recorde d No 03/09/2020 Safety at Home Answer Date Recorded No 03/09/2020 Outside Support Answer Date Recorded No 03/09/2020 Understanding Health Concerns Answer Da te Recorded No 03/09/2020 Financing Health Concerns Answer Date R ecorded No 03/09/2020 Missing School or Work Answer Date Virgilio rded No 03/09/2020 Comments Unknown Sex and Gender Information Value Date Recorded Sex Assigned at Not on file Legal Sex Female 11:18 PM EST Gender Identity Not on file Sexual Orientation Not on file Last Filed Vital Signs Vital Sign Reading Time Taken Comments Blood Pressure 115/78 12/07/2019 2:17 PM EDT Pulse 97 12/07/2019 2:17 PM EDT Temperature 36.6 C (97.9 F) 03/16/2019 1:30 PM EST Respiratory Rate - - Oxygen Saturation - - Inhaled Oxygen Concentration - - Weight 51.4 kg (113 lb 6.4 oz) 12/07/2019 2:17 P M EDT Height 160 cm (5' 3 ) 12/07/2019 2:17 PM EDT Body Mass Index 20.09 12/07/2019 2:17 PM EDT Plan of Treatment Health Maintenance Due Date Last Done Comments DTaP,Tdap,and Td Vaccines (7 - Td or Tdap) 02/25/2024 02/24/2014, 05/16/2006, 08/03/2002, Additional history exists Influenza Vaccines (#1) 2024 01/22/20 18, 02/24/2014, 03/24/2012, Additional history exists COVID-19 Vaccine ( season) 2024 04/26/2021, 09/27/2020, 09/06/2020 Pneumococcal Vaccine Aged Out 2001, 2001, 2001 No longer eligible based on patient's age to complete this topic Hepatitis B Vaccines Completed 2001, 2001, 2001 HIB Vaccines Completed 05/11/2002, 07/27, 2001, Additional history exists IPV Vaccines Completed 05/16/2006, 01/26, 2001, Additional history exists MMR Vaccines Completed 05/16/2006, 05/11/2002 Varicella Vaccines Completed 05/16/2006, 02/10/2002 HPV Vaccines Completed 12/04/2015, 12/2014, 02/24/2014 Meningococcal Vaccine Completed 01/21/2018, 014 Hepatitis A Vaccines Aged Out No long er eligible based on patient's age to complete this topic Men B Vaccine Aged Out No longer elig ible based on patient's age to complete this topic Procedures * Due to [place] law, this organization might not be sharing sensitive test results. Procedure Name Priority Date/Time Associated Diagnosis Comments CHLAMYDIA TRACHOMATIS, AMPLIFIED Routine 12/23/2016 12:00 AM EDT from Last 3 Months or Most Recently Relevant to Health Maintenance Results * Due to [place] law, this organization might not be sharing sensitive test results. * Chlamydia trachomatis, Amplified (12/23/2016 12:00 AM EDT) C.TRACHOMATIS PCR Not Detected CONVERTED LABS Comment: Anne Damian 12/20/2016 04:31:48 PM > , Urine sample labeled and sent to [facility] Negative Reason: Received -[facility] Lab Order [employer] Customer Experience Advisor 12/23/2016 Narrative CONVERTED LABS - 12/23/2016 12:00 AM EDT Chlamydia trachomatis detection by PCR us Kay Lanier MD LAB MICROBIOLOGY - GENERAL ORD ERABLES Final Result CONVERTED LABS from Last 3 Months or Most Recently Relevant to Health Maintenance
--- OUTSIDE RECORDS SUMMARY | 2025-02-10 11:02 | XMS_ITS | Encounter Summary ---
Author Organization [facility] Address [address] [place] [phone] Phone Care Team Providers Care Boom Truck Driver Name Role Phone Kay Lanier MD Primary Care Provider [phone] Encounter Details Date Type Department Care Team (Late st Contact Info) Description 12/04/2016 Conversion Encounter [facility] - [address], [address] [place] [address] Kay Lanier MD [address] [place] [address] Social History Tobacco Use Types Packs/Day Years Used Date Smoking Tobacco: Never Assessed Comments Unknown Sex and Gender Information Value Date Recorded Sex Assigned at Not on file Legal Sex Female 11:18 PM EST Gender Identity Not on file Sexual Orientation Not on file documented as of this encounter Plan of Treatment Not on file documented as of this encounter Visit Diagnoses Not on filedocumented in this encounter Care Teams Boom Truck Driver Relationship Specialty Start Date End Date Kay Lanier MD [address] [place] [address] PCP - General 06/18/16 10/01/21 documented as of this encounter
--- OUTSIDE RECORDS SUMMARY | 2025-02-10 11:02 | XMS_ITS | Clinical Summary ---
Author Organization [facility] Address [address] [place] [address] Phone Care Team Providers Care Box Blank Machine Operator Name Role Phone Eloy Gillette MD Primary Care Provider [phone] Allergies Active Allergy Reactions Criticality Noted Date Comments Bupropion Hcl Seizures High 09/28/2021 Medications albuterol 90 mcg/actuation inhaler 04/16/2021 Active albuterol 2.5 mg /3 mL (0.083 %) nebulizer solution as needed. 03/19/2021 Active TRELEGY ELLIPTA 200-62.5-25 mcg inhaler 09/26/2021 Active SEPTEMBERL 05/17, , 1-20 mg-mcg per tabletIndications :Irregular periods take 1 tablet by mouth every day 84 tablet 1 11/19/2023 Active XOLAIR 150 mg/mL subcutaneous syringe Inject 150 mg under the skin every 28 days. 10/24/2023 Active levocetirizine (XYZAL) 5 MG tablet Take 5 mg by mouth every evening. 2 tabs daily Active norethindrone-eth inyl estradiol (05/17 28 DAY, 21X7,) 1 mg-20 mcg (21)/75 mg (7) per tabletIndications :Irregular periods Take 1 tablet by mouth daily. 30 tablet 11 11/19/2023 Active Active Problems Problem Noted Date Diagnosed Date Insomnia 12/02/2022 Assessment & Plan (12/03/2022 9:39 AM EDT): Longstanding, wishes to use marijuana to help with sleep and will seek out a medical card for use. She is advised that it is not my practice to provide such cards to my patients. It is legal in this state for use. There may be downside effects for her in particular with regular use as it may be contributing to difficulty with anxiety, decreased focus. Difficulty concentrating 12/02/2022 Assessment & Plan (12/03/2022 9:44 AM EDT): ? Anxiety/ADHD/executive function disorder. Recommend [employer] or Yasmany Hughes for neurocognitive evaluation. She and mother express frustration that I am not prescribing a medication for ADHD. She has no documented ADHD in her pediatric chart, has not demonstrated a negative impact on her education or relationships that is not explained by another diagnosis. For this reason, I had referred her to Corbin Bryson for evaluation and management. The patient is not interested in seeing a psychiatrist, which narrows options considerably, particularly as she is leaving for school in 2 weeks. She and mother express understanding that we will not be able to conduct visits out of state. She may do well to see [facility]. I offered a diagnostic consult with behavioral health SAXOPHONE TEACHER within our group, though this too may not occur prior to her leaving for school. It was explained that the consult would not comprise longitudinal care/management. Mood disorder 09/30/2021 Assessment & Plan (09/30/2021 11:04 PM EDT): Very possibly bipolar disorder. Her poor response to buproprion, fluoxetine for anxiety, fam hx of bipolar disorder. Consultation with Corbin Bryson APRN advised to med consultation. Irregular periods 10/07/2016 Overview (09/28/2021): Interested in OCP, mom wants to wait Assessment & Plan (11/20/2023 7:49 AM EDT): Stable, continue OCP use Allergic rhinitis 01/20/2015 Overview (09/28/2021): Hasn't done immunotherapy yet (2018) Mild persistent asthma, uncomplicated 01/09/2015 Overview (09/28/2021): Previously followed by Dr Farias. Per Mom, taken off controller meds by Dr Morrison ~03/2016 with plan to start immunotherapy but they have not been able to manage the logistics of that Last Assessment & Plan: Restart flovent if symptoms of asthma increase to more than once weekly. Assessment & Plan (11/20/2023 7:48 AM EDT): Tolerating Trelegy Ellipta, continue current regimen, along with Xolair. Assessment & Plan (09/30/2021 11:05 PM EDT): Continue Trelegy, use albuterol with spacer. Reassess if worsening. Immunizations Immunization Administration Dates Next Due DTaP 05/16/2006, 3,2001,06/10,2001 HPV,quadrivalent 05/06/2014,02/24/2014 HPV9 12/04/2015 Hepatitis B 2001,2001,2001 Hib,PRP-T 05/11/2002, 2,2001,04/15 INFLUENZA, SPLIT VIRUS, TRIV ALENT W/ PRESERVATIVE IM 03/24/2012,01/17/2010 IPV 05/16/2006, 2,2001,04/15 Influenza Quadrivalent MDCK Preservative Free IM 05/01/2022 Influenza Quadrivalent Prese rvative Free IM 01/21/2018,02/24/2014 Influenza, Unspecified Formulation 06/16/2008,,05/12/2003 MMR 05/11/2002 MMRV 05/16/2006 Meningococcal MCV4P 01/21/2018,02/24/2014 Pneumococcal conjugate, PCV 7 2001, 002,2001 Tdap 02/24/2014 Varicella 02/10/2002 Family History Medical History Relation Comments Bipolar disorder Father Nephrolithiasis Maternal Grandmother Nephrolithiasis Mother Prostate cancer Paternal Grandfather Relation Status Comments Father Alive Maternal Grandfather Alive Maternal Grandmother Alive Mother Alive Paternal Grandfather (Age 70) Paternal Grandmother Alive Sister Alive Social History Tobacco Use Types Packs/Day Years Used Date Smoking Tobacco: Never Smokeless Tobacco: Never Tobacco Cessation:Counseling Given: Not Answered Alcohol Use Standard Drinks/Week Comments Never 0 (1 standard drink = 0.6 oz pur e alcohol) Child or Family Care Answer Date Record ed Do you have problems with on e of the following making it difficult for you to work, study, or receive health care? No 09/28/2021 Education Answer Date Recorded Are you interested in more education? Not on baudilio e 10/07/2023 Are you concerned about learning? Not on file 10/07/2023 No 10/07/2023 No 10/07/2023 Food Answer Date Recorded Within the past 6 months we worried whether our food would run out before we got money to buy more. Never True 09/28/2021 Within the past 6 months the food we bought just didn't last and we didn't have enough money to get more. Never True Residential Stability Answer Date Recor ded What is your housing situation today? I have darrick brito 09/28/2021 How many times have you moved in the past 12 fri ths? One time 09/28/2021 Paying for Meds Answer Date Recorded Do you have trouble paying for medicines? No 09/28/2021 Paying Utility Bills Answer Date Record ed Do you have trouble paying your heating or elect ricity bill? No 09/28/2021 Transportation Answer Date Recorded Has the lack of transportati on kept you from medical appointments or from getting medications? No 09/28/2021 Unemployment Answer Date Recorded Are you currently unemployed or working on a part-time or temporary basis, and looking for work? Yes 09/28/2021 Digital Access Answer Date Recorded No 09/19/2022 No 09/19/2022 Reliable internet access at home? Not on file 09/19/2022 Device with a working camera? Not on file Comments No Sex and Gender Information Value Date Recorded Sex Assigned at Female 09/17/2018 9:56 PM EDT Legal Sex Female 8:45 PM EDT Gender Identity Female 09/17/2018 9:56 PM EDT Sexual Orientation Not on file Occupation Industry Job Start Date Job End Date student Not on file Not on file Not on file Last Filed Vital Signs Vital Sign Reading Time Taken Comments Blood Pressure 128/82 11/19/2023 3:22 PM EDT Pulse 108 11/19/2023 3:22 PM EDT Temperature 36.6 C (97.9 F) 11/19/2023 3:22 PM EDT Respiratory Rate 18 12/03/2022 1:15 PM EDT Oxygen Saturation 97% 11/19/2023 3:22 PM EDT Inhaled Oxygen Concentration - - Weight 67.5 kg (148 lb 12.8 oz) 11/19/2023 3:22 PM EDT Height 157.5 cm (5' 2.01 ) 11/19/2023 3:22 PM ED T Body Mass Index 27.21 11/19/2023 3:22 PM EDT Plan of Treatment Health Maintenance Due Date Last Done Comments SMOKING Hx and SMOKELESS TOBACCO SCREENING 2014 CHLAMYDIA SCREENING 2017 MENINGOCOCCAL VACCINES (B) (1 of 2 - Standard) 2017 HEPATITIS C SCREENING 2019 HIV ONE-TIME SCREENING (18-65 YEARS) 2019 PNEUMOCOCCAL VACCINES (0-49 years) (1 of 2 - PCV) 02/10/2020 2001, 2001, 2001 PAP SMEAR 2022 DEPRESSION SCREENING 09/28/2022 09/28/2021 Adult Td,Tdap Booster 02/25/2024 02/24/2014 INFLUENZA VACCINE (#1) 2024 , 01/21/2018, 02/24/2014, Additional history exists COVID-19 VACCINE ( season) 2024 05/01/2022, 04/26/2021, 09/27/2020, Additional history exists HIB VACCINES Completed 05/11/2002, 07/27, 2001, Additional history exists HPV VACCINES Completed 12/04/2015, 12/2014, 02/24/2014 MENINGOCOCCAL VACCINES (ACWY) Completed 01/21/2018, 02/24/2014 HEPATITIS A VACCINES Aged Out No long er eligible based on patient's age to complete this topic Medical Devices Not on file Insurance [employer] [place] [employer] [place] [place] [address] [employer] [place] [address] Care Teams Box Blank Machine Operator Relationship Specialty Start Date End Date Eloy Gillette MD [address] [facility] [place] [address] PCP - General Internal Medicine 09/28/21 Additional Source Comments The information contained in this document represents components of the legal health record. It is not the complete legal health record.[facility]
== END 2025-02-10 15:42 | disposition home or self-care (01) ==
LOC: HO.HWSM 09:37
PROVIDERS: PCP Physician Assistant; Visit Provider Advanced Practice Midwife
DX: R73.01 Impaired fasting glucose (principal); Z30.09 Encounter for other general counseling and advice on contraception; L65.9 Nonscarring hair loss, unspecified
CPT/HCPCS: 99213

== ENCOUNTER 2025-03-16 15:25 | Outpatient (AMB) | payer OTHER, SELFPAY ==
--- NOTE | 2025-03-16 15:27 | MHC.PC.OV ---
Vital Signs 03/16/25 15:36 Height 5 ft 3 in Weight 143 lb 6 oz BMI 25.4 BP 130/84 Blood Pressure Location Lt brachial Position Sitting Respiration 12 Pulse 102 H Pulse Source Pulse Oximeter Temp 99.2 F Temp Source Oral Pulse Oximetry (%) 97 Oxygen Delivery Method Room Air Intake Visit Reasons: Physical Intake Note: Physical Certified Hearing Instrument Dispenser Required: No Allergies No Known Allergies Allergy (Verified 03/16/25 15:32) Tobacco use date assessed: 03/16/25 Dental Screening Dental Screen Date: 03/16/25 Did you have a dental visit in the last 12 months?: Yes Did you have a dental problem in the last 6 months where you did not have access to dental care?: No Was dental information given to patient?: Patient has dentist HPI Physical HPI Details Patient is a 25-year-old female who presents today for a physical exam and a grocery list of concerns . She has a history of hyperlipidemia, B12 deficiency, impaired fasting glucose, asthma, environmental allergies and anxiety with depression. GI: she states for the past year she has been having constipation. She has been using stool softeners, laxatives. She has tried altering her diet. She states she eats plenty of fiber. She stays well hydrated. She noted blood in the stool a week ago. She started a probiotic and states it sometimes help. She does not have any pain in her abdomen or weight loss. -no change in her antihistamine treatment plan. Derm: She has also noted some hair thinning. She states again she eats well balanced and has been taking biotin and rogaine shampoo. Psych: Recently has had some stressors and wants to see a specialist.. She states she is thinking about doing graduate school there. Would like to see if she has add PULM: Asthma is currently well-controlled with current regimen. CV: She has somewhat been following a low-fat diet but not overly. She says that she could do better with this. Cut Order Hand: [facility], [facility] Medical History Moderate asthma with allergic rhinitis without complication Family History Paternal Uncle Substance use Depression Anxiety Father Depression Anxiety Paternal Aunt Depression Anxiety Paternal Grandfather Depression Anxiety Paternal Grandmother Depression Anxiety Other FH: mental illness Social History Housing: House Patient Tobacco Use Status: Never used Tobacco e-Cigarette/Vaping Use: Never Used Second Hand Smoke Exposure: No Substance Use Type: Marijuana service: No Current occupational status: employed Current occupation: unknown, starting Friday Cognitive needs: No Hearing needs: No Vision needs: No Female Reproductive History Menstrual Age of Menarche: 12 Questionnaire PHQ-9 Over the last 2 weeks, how often have you been bothered by any of the following problems? 1. Little interest or pleasure in doing things: several days 2. Feeling down, depressed, or hopeless: several days 3. Trouble falling or staying asleep, or sleeping too much: nearly every day 4. Feeling tired or having little energy: nearly every day 5. Poor appetite or overeating: more than half the days 6. Feeling bad about yourself - or that you are a failure or have let yourself or your family down: not at all 7. Trouble concentrating on things, such as reading the newspaper or watching television: nearly every day 8. Moving or speaking so slowly that other people could have noticed. Or the opposite - being so fidgety or restless that you have been moving around a lot more than usual: not at all 9. Thoughts that you would be better off or of hurting yourself in some way: not at all Total score: 13 Source: Developed by Drs. Lane Lyn, Summer Garcia, Lavon Abraham and colleagues, with an educational edson from [employer] Thrive Questionnaire Date Thrive assessed: 03/09/25 I am a: Patient What is your living situation today?: I have a steady place to live Within the past 12 months, did the food you bought not last and you didn't have the money to get more?: Sometimes True Within the past 12 months, did you worry whether your food would run out before you got money to buy more?: Sometimes True Do you have trouble paying for medicines?: Yes Do you have trouble getting transportation to medical appointments?: No Do you have trouble paying your heating and electricity bill?: No Do you have trouble taking care of your child, family member or friend?: No Do you have trouble with day-to-day activities such as bathing, preparing meals, shopping, managing finances, etc.?: No Are you currently unemployed and looking for a job?: No Are you interested in more education?: Yes Please select the resources that you would like help with: Paying for medicine Currently or been in a relationship where the following occur: No concerns reported THRIVE Score: 2 AUDIT C Alcohol Use Questionnaire (AUDIT-C) 1. How often do you have a drink containing alcohol?: Monthly or less 2. How many drinks containing alcohol do you have on a typical day when you are drinking?: 1 or 2 3. How often do you have six or more drinks on one occasion?: Never Total Score: 1 PAWAN-7 AMB Questionnaire PAWAN-7 Feeling nervous, anxious, or on edge: 1 = Several days Not being able to stop or control worryin = Nearly every day Worrying too much about different things: 3 = Nearly every day Trouble relaxin = Nearly every day Being so restless that it is hard to sit still: 3 = Nearly every day Becoming easily annoyed or irritable: 2 = More than half the days Feeling afraid as if something awful might happen: 1 = Several days Total PAWAN-7 score (0-4 normal; 5-9 mild; 10-14 moderate; 15-21 severe): 16 Source: Developed by Drs. Lane Lyn, Summer Garcia, Lavon Abraham and colleagues, with an educational edson from [employer] ACT Questionnaire In the past 4 weeks, how much of the time did your asthma keep you from getting as much done at work, school or at home?: None of the time During the past 4 weeks, how often have you had shortness of breath?: 1-2 times a week During the past 4 weeks, how often did your asthma symptoms wake you up at night or earlier than usual in the morning?: Not at all During the past 4 weeks, how often have you had to use your rescue inhaler or nebulizer medication?: Not at all How would you rate your asthma control during the past 4 weeks?: Well controlled ACT Interpretation: Positive Score: 23 Physical exam (Primary Care) Vital Signs: Last Vital Signs Temp 99.2 F 03/16/25 15:36 Pulse 102 H 03/16/25 15:36 Resp 12 11/19/25 15:36 BP 130/84 03/16/25 15:36 Pulse Ox 97 03/16/25 15:36 Oxygen Delivery Method Room Air 03/16/25 15:36 BMI result Body Mass Index 25.4 Tobacco/Smoking Status: Tobacco use Status Tobacco use date assessed 03/16/25 03/16/25 15:38 Patient Tobacco Use Status Never used Tobacco 03/16/25 15:27 e-Cigarette/Vaping Use Never Used 03/16/25 15:27 PHQ-9: PHQ-9 Score PHQ-9: Total score 13 03/16/25 15:45 Thrive Assessment: Date of Thrive Assessment Date Thrive assessed 03/09/25 03/16/25 15:27 Currently or been in a relationship where the following occur: No concerns reported Const Orientation/consciousness: patient oriented x3 HENMT Ears: hearing grossly normal bilaterally Neck Thyroid: Thyroid normal Lymphatic: no lymphadenopathy noted Resp Auscultation: clear to auscultation bilaterally Cardio Rate: regular rate Rhythm: regular rhythm Heart sounds: S1 normal heart sound present and S2 normal heart sound present GI Inspection: Yes normal to inspection Palpation (GI): Soft to palpation and Other GI palpation findings present (nontender, no cva tenderness) Auscultation: normoactive bowel sounds Rectal Exam - Female: deferred Skin General skin exam: no rashes or lesions noted Neuro General: patient oriented x3, gait normal and no focal motor deficits Coding Level of Care Code Est Pt Level 3 (14882) Est Pt Prev Care 18-39y(81828) Diagnoses Routine general medical examination at a health care facility Z00.00 Hair thinning L65.9 Concentration deficit R41.840 IFG (impaired fasting glucose) R73.01 B12 deficiency E53.8 Constipation K59.00 Additional Codes Asthma Control Questionnaire - ACT Interpretation: Positive ([id number]) Assessment & Plan Assessment & Plan (1) Routine general medical examination at a health care facility: Code(s): Z00.00 - Encounter for general adult medical examination without abnormal findings Plan: reviewed labs reviewed and ordered will get immunizations at pharmacy (2) Hair thinning: Code(s): L65.9 - Nonscarring hair loss, unspecified Category: Medical Plan: Referral to derm (3) Concentration deficit: Code(s): R41.840 - Attention and concentration deficit Category: Medical Plan: Referral to the [facility] (4) IFG (impaired fasting glucose): Code(s): R73.01 - Impaired fasting glucose Category: Medical Plan: A1c ordered (5) B12 deficiency: Code(s): E53.8 - Deficiency of other specified B group vitamins Category: Medical Plan: Labs ordered (6) Constipation: Code(s): K59.00 - Constipation, unspecified Category: Medical Plan: We will check labs including TSH. I have encouraged her to continue with the probiotic and I have encouraged exercise. Referral to GI Orders: Orders Lipid Panel 03/16/25 E53.8 - Deficiency of other specified B group vitamins, K59.00 - Constipation, unspecified, L65.9 - Nonscarring hair loss, unspecified, R41.840 - Attention and concentration deficit, R73.01 - Impaired fasting glucose IRON PROFILE 03/16/25 E53.8 - Deficiency of other specified B group vitamins, K59.00 - Constipation, unspecified, L65.9 - Nonscarring hair loss, unspecified, R41.840 - Attention and concentration deficit, R73.01 - Impaired fasting glucose Hemoglobin A1c 03/16/25 R73.01 - Impaired fasting glucose Complete Blood Count Auto Diff 03/16/25 E53.8 - Deficiency of other specified B group vitamins, K59.00 - Constipation, unspecified, L65.9 - Nonscarring hair loss, unspecified, R41.840 - Attention and concentration deficit, R73.01 - Impaired fasting glucose Comprehensive [place]. Panel Fast 03/16/25 E53.8 - Deficiency of other specified B group vitamins, K59.00 - Constipation, unspecified, L65.9 - Nonscarring hair loss, unspecified, R41.840 - Attention and concentration deficit, R73.01 - Impaired fasting glucose TSH reflex Free T4 03/16/25 E53.8 - Deficiency of other specified B group vitamins, K59.00 - Constipation, unspecified, L65.9 - Nonscarring hair loss, unspecified, R41.840 - Attention and concentration deficit, R73.01 - Impaired fasting glucose UA CC w/rflx Micro + Cult 03/16/25 E53.8 - Deficiency of other specified B group vitamins, K59.00 - Constipation, unspecified, L65.9 - Nonscarring hair loss, unspecified, R30.0 - Dysuria, R41.840 - Attention and concentration deficit, R73.01 - Impaired fasting glucose Vitamin B12 and Folate 03/16/25 E53.8 - Deficiency of other specified B group vitamins, K59.00 - Constipation, unspecified, L65.9 - Nonscarring hair loss, unspecified, R41.840 - Attention and concentration deficit, R73.01 - Impaired fasting glucose Ferritin 03/16/25 E53.8 - Deficiency of other specified B group vitamins, K59.00 - Constipation, unspecified, L65.9 - Nonscarring hair loss, unspecified, R41.840 - Attention and concentration deficit, R73.01 - Impaired fasting glucose Referrals Gastroenterology Referral K59.00 - Constipation, unspecified Dermatology Referral L65.9 - Nonscarring hair loss, unspecified Neuropsychiatry Referral R41.840 - Attention and concentration deficit
[2025-03-16 15:36] VITALS: BP 130/84; PULSE 102; RESP 12; TEMP 37.3; O2SAT 97; BMI 25.4
--- OUTSIDE RECORDS SUMMARY | 2025-03-17 04:00 | XMS_ITS | Clinical Summary ---
Author Organization [facility] Address [address] [place] [address] Phone Care Team Providers Care Director Dermatology Name Role Phone Unavailable Primary Care Provider [...] complete this topic Procedures * Due to [place] [employer] law, this organization might not be sharing sensitive test results. Procedure Name Priority Date/Time Associated Diagnosis Comments CHLAMYDIA TRACHOMATIS, AMPLIFIED Routine 12/23/2016 12:00 AM EDT from Last 3 Months or Most Recently Relevant to Health Maintenance Results * Due to [place] [employer] law, this organization might not be sharing sensitive test results. * Chlamydia trachomatis, Amplified (12/23/2016 12:00 AM EDT) C.TRACHOMATIS PCR Not Detected CONVERTED LABS Comment: Anne Damian 12/20/2016 04:31:48 PM > , Urine sample labeled and sent to [facility] Negative Reason: Received -[facility] Lab Order Adult Ministries Director 12/23/2016 Narrative CONVERTED LABS - 12/23/2016 12:00 AM EDT Chlamydia trachomatis detection by PCR us Kay Lanier MD LAB MICROBIOLOGY - GENERAL ORD ERABLES Final Result CONVERTED LABS from Last 3 Months or Most Recently Relevant to Health Maintenance
--- OUTSIDE RECORDS SUMMARY | 2025-03-17 04:00 | XMS_ITS | Clinical Summary ---
Author Organization [facility] Address [address] [place] [address] Phone Care Team Providers Care Hot Top Liner Helper Name Role Phone Eloy Gillette MD Primary Care Provider [phone] Allergies Active Allergy Reactions Criticality Noted Date Comments Bupropion Hcl Seizures High 09/28/2021 Medications albuterol 90 mcg/actuation inhaler 04/16/2021 Active albuterol 2.5 mg /3 mL (0.083 %) nebulizer solution as needed. 03/19/2021 Active TRELEGY ELLIPTA 200-62.5-25 mcg inhaler 09/26/2021 Active JUNEL 05/17, , 1-20 mg-mcg per tabletIndications :Irregular [...] EDT): ? Anxiety/ADHD/executive function disorder. Recommend [employer] or Yasmany Hughes for neurocognitive evaluation. She [...] may do well to see provider at [facility] of her school. I offered a diagnostic consult with behavioral health CLINICAL DOCUMENTATION NURSE within our group, though this too may [...] SMOKELESS TOBACCO SCREENING 2014 CHLAMYDIA SCREENING 2017 HEPATITIS C SCREENING 2019 HIV ONE-TIME [...] on patient's age to complete this topic MENINGOCOCCAL VACCINES (B) Aged Out N o longer eligible based on patient's age to complete this topic Medical Devices Not on file Insurance [facility] [employer] [place] [facility] [employer] [place] [facility] [employer] [place] Care Teams Hot Top Liner Helper Relationship Specialty Start Date End Date Eloy Gillette MD [address] [place] [address] [email or web address] PCP - General Internal Medicine 09/28/21 Additional Source Comments The information contained in this document represents components of the legal health record. It is not the complete legal health record.[facility]
--- OUTSIDE RECORDS SUMMARY | 2025-03-17 04:00 | XMS_ITS | Encounter Summary ---
Author Organization [facility] Address [address] [place] [address] Phone Care Team Providers Care Digital Press Operator Name Role Phone Kay Lanier MD Primary Care Provider [phone] Encounter Details Date Type Department Care Team (Late st Contact Info) Description 12/04/2016 Conversion Encounter [facility] Pediatrics - [address], [address] [place] [address] Kay Lanier MD [address] [place] [address] Social History Tobacco Use Types Packs/Day Years [...] on filedocumented in this encounter Care Teams Digital Press Operator Relationship Specialty Start Date End Date Kay Lanier MD [address] [place] [address] PCP - General 06/18/16 10/01/21 documented as of this encounter
== END 2025-03-16 16:01 | disposition home or self-care (01) ==
LOC: HO.HMCFM 15:26
PROVIDERS: PCP Physician Assistant; Visit Provider Physician Assistant
DX: Z00.00 Encounter for general adult medical examination without abnormal findings (principal); R41.840 Attention and concentration deficit; R73.01 Impaired fasting glucose; E53.8 Deficiency of other specified B group vitamins; L65.9 Nonscarring hair loss, unspecified; K59.00 Constipation, unspecified

== ENCOUNTER → 2025-03-16 15:25 | Outpatient (BNVA) | payer OTHER, SELFPAY | PROVIDERS: PCP Physician Assistant; Visit Provider Physician Assistant | DX: Z00.00 Encounter for general adult medical examination without abnormal findings (principal); L65.9 Nonscarring hair loss, unspecified; R41.840 Attention and concentration deficit; R73.01 Impaired fasting glucose; E53.8 Deficiency of other specified B group vitamins; K59.00 Constipation, unspecified | CPT/HCPCS: 96127; 96160 ==

== ENCOUNTER 2025-03-21 15:41 | Outpatient (REF) | payer OTHER, SELFPAY ==
[2025-03-21 18:28] LABS: MANUAL DIFF FLAG NO
[2025-03-21 18:37] LABS: Hematocrit 45.0 % (37.0-47.0); Hemoglobin 15.2 g/dl (12.0-16.0); Imm Gran Abs Auto 0.05 X10*3/uL (0.00-0.03); Imm Gran Pct Auto 0.4 % (0.0-0.4); Lymphocytes Absolute Auto 2.9 X10*3/uL (1.2-4.9); Mean Corpuscular HGB Conc 33.8 g/dl (31.0-35.0); Mean Corpuscular Hemoglobin 30.6 pg (27.0-33.0); Mean Corpuscular Volume 90.7 fL (80.0-98.0); NRBC Abs Auto 0.000 X10*3/uL (0.0-0.012); NRBC Pct Auto 0.0 /100WBC (0.0-0.2); Platelet Count 370 X10*3/uL (160-400); Red Blood Count 4.96 X10*6/uL (4.20-5.50); White Blood Count 11.3 X10*3/uL (4.8-10.8)
[2025-03-21 18:45] LABS: Appearance Urine Clear; Glucose Urine UA Negative (Negative); PH 5.5 (5.0-9.0); Specific Gravity - Urine 1.020 (1.005-1.025)
[2025-03-21 19:12] LABS: Alanine Aminotransferase 15 U/L (0-31); Albumin Level 4.3 g/dL (3.5-5.0); Alkaline Phosphatase 51 U/L (39-117); Anion Gap 10 (12-20); Aspartate Amino Transferase 19 U/L (5-31); Blood Urea Nitrogen 11 mg/dL (9-16); Calcium 9.6 mg/dL (8.4-10.2); Carbon Dioxide 27 mmol/L (22-29); Chloride 106 mmol/L (96-108); Cholesterol 360 mg/dL (<200); Estimated Glomerular Filt Rate > 60; Ferritin 97 ng/mL (10-122); HDL Cholesterol 48 mg/dL (>40); Iron 138 mcg/dL (30-160); Percent Iron Saturation 35 % (15-50); Potassium 3.7 mmol/L (3.3-5.1); Sodium 139 mmol/L (135-145); Thyroid Stimulating Hormone 0.92 uIU/mL (0.32-4.0); Total Iron Binding Capacity 392 mcg/dL (228-428); Total Protein 7.7 g/dL (6.5-8.0); Triglycerides 183 mg/dL (<150); Unsaturated Iron Binding 254 ug/dL
[2025-03-21 19:28] LABS: Folate 12.4 ng/mL (> or = 4.0); Vitamin B12 1296 pg/mL (200-900)
--- OUTSIDE RECORDS SUMMARY | 2025-03-21 20:11 | XMS_ITS | Clinical Summary ---
Author Organization [facility] Address [address] [place] [address] Phone Care Team Providers Care Cnc Operator Name Role Phone Unavailable Primary Care Provider [...] complete this topic Procedures * Due to [place] [employer] law, this organization might not be sharing sensitive test results. Procedure Name Priority Date/Time Associated Diagnosis Comments CHLAMYDIA TRACHOMATIS, AMPLIFIED Routine 12/23/2016 12:00 AM EDT from Last 3 Months or Most Recently Relevant to Health Maintenance Results * Due to [place] [employer] law, this organization might not be sharing sensitive test results. * Chlamydia trachomatis, Amplified (12/23/2016 12:00 AM EDT) C.TRACHOMATIS PCR Not Detected CONVERTED LABS Comment: Anne Damian 12/20/2016 04:31:48 PM > , Urine sample labeled and sent to [facility] Negative Reason: Received -[facility] Lab Order Jail Guard 12/23/2016 Narrative CONVERTED LABS - 12/23/2016 12:00 AM EDT Chlamydia trachomatis detection by PCR us Kay Lanier MD LAB MICROBIOLOGY - GENERAL ORD ERABLES Final Result CONVERTED LABS from Last 3 Months or Most Recently Relevant to Health Maintenance
--- OUTSIDE RECORDS SUMMARY | 2025-03-21 20:11 | XMS_ITS | Clinical Summary ---
Author Organization [facility] Address [address] [place] [address] Phone Care Team Providers Care Rug Designer Name Role Phone Eloy Gillette MD Primary Care Provider Allergies Active Allergy Reactions Criticality Noted Date [...] EDT): ? Anxiety/ADHD/executive function disorder. Recommend [employer] or Yasmany Hughes for neurocognitive evaluation. She [...] may do well to see provider at [facility] of her school. I offered a diagnostic consult with behavioral health INSPECTING SUPERVISOR within our group, though this too may [...] topic Medical Devices Not on file Insurance [facility] [employer] [place] [facility] [employer] [place] [facility] [employer] [place] Care Teams Rug Designer Relationship Specialty Start Date End Date Eloy Gillette MD [address] [place] [address] [email or web address] PCP - General Internal Medicine 09/28/21 Additional Source Comments The information contained in this document represents components of the legal health record. It is not the complete legal health record.[facility]
--- OUTSIDE RECORDS SUMMARY | 2025-03-21 20:11 | XMS_ITS | Encounter Summary ---
Author Organization [facility] Address [address] [place] [address] Phone Care Team Providers Care Quality Assurance Supervisor Chassis Name Role Phone Kay Lanier MD Primary Care Provider [phone] Encounter Details Date Type Department Care Team (Late st Contact Info) Description 12/04/2016 Conversion Encounter [facility] Pediatrics - [address], [address] [place] [address] Kay Lanier MD [address] [place] [address] Social History Tobacco Use Types Packs/Day Years [...] on filedocumented in this encounter Care Teams Quality Assurance Supervisor Chassis Relationship Specialty Start Date End Date Kay Lanier MD [address] [place] [address] PCP - General 06/18/16 10/01/21 documented as of this encounter
[2025-03-22 04:34] LABS: Syphilis Screen Nonreactive (Nonreactive)
[2025-03-22 05:21] LABS: HBsAGNum1 0.39 S/CO (0.00-0.99); HIV Num 1 0.07 S/CO (0.00-0.99); Hepatitis B Surface Antigen Negative (Negative); ~HepC Num1 0.07 S/CO (0.00-0.79); ~Hepatitis C Antibody Nonreactive (Nonreactive)
== END 2025-03-21 15:42 | disposition home or self-care (01) ==
LOC: HO.WFDLDS 15:41
PROVIDERS: Referring Provider Physician Assistant; Visit Provider Advanced Practice Midwife
DX: Z01.419 Encounter for gynecological examination (general) (routine) without abnormal findings (principal); Z13.6 Encounter for screening for cardiovascular disorders; Z11.59 Encounter for screening for other viral diseases; Z11.4 Encounter for screening for human immunodeficiency virus [HIV]; Z30.09 Encounter for other general counseling and advice on contraception; E53.8 Deficiency of other specified B group vitamins; R73.01 Impaired fasting glucose; R41.840 Attention and concentration deficit; R30.0 Dysuria; K59.00 Constipation, unspecified; L65.9 Nonscarring hair loss, unspecified
CPT/HCPCS: 36415; 80053; 80061; 81003; 82607; 82728; 82746; 83036; 83540; 84443; 85025; 86780; 86803; 87340; 87389

== ENCOUNTER 2025-03-30 15:05 | Outpatient (AMB) | payer OTHER, SELFPAY ==
--- NOTE | 2025-03-30 15:08 | A.OFFVIS_ITS ---
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 Sprigger: Sprigger Present (Princess) Accompanied by: Self / Same As Patient Allergies No Known Allergies Allergy (Verified 03/30/25 15:13) Medication List - Last Reconciled 03/30/25 by Payton Alvarez CNM albuterol sulfate 90 mcg/actuation 2 puffs inhalation Q6H PRN albuterol sulfate 2.5 mg (3 mL) inhalation Q4-6H PRN 30 days cholecalciferol (vitamin D3) PO cyanocobalamin (vitamin B-12) 1,000 mcg PO DAILY desog-e.estradiol/e.estradiol 0.15-0.02 mgx21 /0.01 mg x 5 1 tab PO DAILY jiubjotcyht-taltghoku-cubcdvdx 200-62.5-25 mcg (Trelegy Ellipta) 1 ea inhalation DAILY levocetirizine (Xyzal) 5 mg PO DAILY omalizumab (Xolair) mg subcut [probiotic PO] Is last menstrual period known: Yes Last menstrual period: 03/21/25 Post menopausal: No Patient : No HPI HPI 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 She had come in 1 month ago to switch her pills back from the Desogen menstrual formulation she was on to the norethindrone formulation she had been on in the past that she liked much better. Through painstaking investigation in the chart it appears that when she went to the primary care visit 2 weeks ago there was some confusion in the med history taken and she was ?discontinued from the pills she had just started on and the previous 1 was listed as her med which is how it showed up today on the intake I reviewed it with her in detail and we have gone through the system several times and I am discontinuing the Desogen menstrual formulation and reordering the norethindrone formulation ( 120 that she preferred. A different ?brand name was given to her at the pharmacy then the , but she double checked the formulation. She has been reviewing lots of issues with her primary care provider and did so at her visit 2 weeks ago. Her blood pressure is elevated today and she said it has been up in the past. She is not currently sexually active she had wanted to stay on the pills however because of her periods She recently got blood work done complete panel including thyroid level.. She also had some biopsies done at a electronic sensing equipment assembler yesterday to help determine the nature of her hair thinning on the top of her head her sister also has a it and that is started at the same age and her mother has it as well she says high blood pressure and heart disease and high cholesterol also run in her family. [facility] Medical History Moderate asthma with allergic rhinitis without complication Family History Paternal Uncle Substance use Depression Anxiety Father Depression Anxiety Paternal Aunt Depression Anxiety Paternal Grandfather Depression Anxiety Paternal Grandmother Depression Anxiety Other FH: mental illness Social History Housing: House Patient Tobacco Use Status: Never used Tobacco e-Cigarette/Vaping Use: Never Used Second Hand Smoke Exposure: No Substance Use Type: Marijuana service: No Current occupational status: employed Current occupation: unknown, starting Friday Cognitive needs: No Hearing needs: No Vision needs: No Female Reproductive History Menstrual Age of Menarche: 12 Duration of menses: 6-7 days Date of last menstrual period: 03/21/25 control method: pills Total pregnancies: 0 Date of last pap smear: 03/24/24 (negative pap smear) History of abnormal pap smear: No Physical Exam Vital Signs: Last Vital Signs BP 132/90 H 03/30/25 15:12 BMI result Body Mass Index 25.2 Const General: healthy appearing, comfortable, no acute distress, well developed and alert Nutritional Appearance: average body habitus Orientation/consciousness: patient oriented x3 Limitations: no limitations HEENT Head: Yes normocephalic Neck Neck: Yes normal visual inspection Chest Chest palpation & inspection: normal inspection of the chest Breast/axilla inspection: normal inspection of the breasts and normal inspection of the axillae Breast/axilla palpation: normal palpation of the breasts and normal palpation of the axillae Resp Effort & Inspection: normal respiratory effort GI Inspection: Yes normal to inspection, No Abdominal wall edema and No distended Palpation (GI): Soft to palpation and nontender Other: Patient had no need for STI testing and Pap smear was negative last year as well as STI testing last year. She is occasionally has random pains in her ovaries when she sneezes so bimanual was done cervix long close mobile nontender nulliparous uterus small midposition mobile nontender adnexa not enlarged nontender good tone with Kegel. General: Yes bladder normal to palpation External Female Exam: normal external appearance and normal appearance of the urethra Bimanual exam- vagina & uterus: normal bimanual exam, uterine size normal, bladder normal to palpation, consistency normal, uterine mobility normal, uterine shape normal, non-tender and no cervical motion tenderness Bimanual Exam- Adnexa, other: normal adnexae, no masses, normal and No adnexal tenderness Neuro General: patient oriented x3 Results Reviewed Results Reviewed: Reviewed her past Pap and STI testing as well as her lab work from her recent blood draw and the 1 prior to that with her primary care provider. Assessment & Plan Assessment & Plan (1) IFG (impaired fasting glucose): Code(s): R73.01 - Impaired fasting glucose Category: Medical (2) control counseling: Code(s): Z30.09 - Encounter for other general counseling and advice on contraception Category: Medical (3) Well woman exam with routine gynecological exam: Code(s): Z01.419 - Encounter for gynecological examination (general) (routine) without abnormal findings Category: Medical (4) Cervical cancer screening: Comment: 03/24/24 pap is negative. Code(s): Z12.4 - Encounter for screening for malignant neoplasm of cervix Category: Medical (5) Dyslipidemia: Code(s): E78.5 - Hyperlipidemia, unspecified Category: Medical (6) Hair thinning: Comment: Though not listed on her med list, patient says she started spironolactone at the lowest dose last week and will be titrating upwards per her electronic sensing equipment assembler. Code(s): L65.9 - Nonscarring hair loss, unspecified Category: Medical (7) High blood pressure: Comment: Re-evaluate it following blood pressure/BCP check visit if continues elevated, if further consideration for another method Code(s): I10 - Essential (primary) hypertension Category: Medical Plan Patient had no need for STI testing and Pap smear was negative last year as well as STI testing last year. She is occasionally has random pains in her ovaries when she sneezes so bimanual was done cervix long close mobile nontender nulliparous uterus small midposition mobile nontender adnexa not enlarged nontender good tone with Kegel. So at this visit we talked about all of her health concerns and the screening she is awaiting for with her hair thinning (awaiting biopsy results), as well as the familial tendencies for all of the issues discussed in HPI. Since she had been inadvertently discontinue the from the pill that she just started this past month I reordered the norethindrone OCP that she wished to be on which is a generic of the Junel and discontinued again the Desogestrel formulation which she does not wish to be on. Additionally she was started on spironolactone by her electronic sensing equipment assembler recently and is titrating the dose upwards for hair thinning. However recheck of her blood pressure at the end of visit revealed the same findings. She does have a family history of hypertension and she has noted that it was elevated in the past we will see her again in about 3 months anywhere between 2 and 4 whichever is good for her schedule and reassess. We discussed that she might need to come off the combination OCPs if her blood pressure continues to be elevated and options would include changing to a norethindrone only control pill and long-term consideration of either a Mirena IU S and I did discuss the side effects of that versus a ParaGard IUD and we discussed the side effects of those Discussed the insertion procedure and the side effect profile of both the Mirena and the ParaGard and the use of misoprostol to make insertion a little bit more tolerable on the heaviest day of ones's period.. Discussed diet and overall health in every way discussed strategies for exercise while trying to save money, and thinks she may want to consider in the future if the blood pressure is elevated.. RTC 2-4 months for continued discussion of control and blood pressure check. (even with her normal cycles in past and lack of hirsutisum consideration to testosterone levels could be given at future visits) Medications: New norethindrone ac-eth estradiol 1-20 mg-mcg (Junel) 1 tab PO DAILY 63 tabs 4RF Discontinued desog-e.estradiol/e.estradiol 0.15-0.02 mgx21 /0.01 mg x 5 Discontinued Reason: Patient no longer taking 1 tab PO DAILY 84 tabs 3RF Coding Level of Care Code Est Pt Prev Care 18-39y([id number]) Diagnoses IFG (impaired fasting glucose) R73.01 control counseling Z30.09 Well woman exam with routine gynecological exam Z01.419 Cervical cancer screening Z12.4 Dyslipidemia E78.5 Hair thinning L65.9 High blood pressure I10
[2025-03-30 15:12] VITALS: BP 132/90; BMI 25.2
--- OUTSIDE RECORDS SUMMARY | 2025-03-30 18:09 | XMS_ITS | Encounter Summary ---
Author Organization [facility] Address [address] [place] [id number] Phone Care Team Providers Care Labor And Employment Paralegal Name Role Phone Kay Lanier MD Primary Care Provider [phone] Encounter Details Date Type Department Care Team (Late st Contact Info) Description 12/04/2016 Conversion Encounter [facility] - [address], [address] [place] [address] Kay Lanier MD [address] [place] [address] Social History Tobacco Use Types Packs/Day Years [...] on filedocumented in this encounter Care Teams Labor And Employment Paralegal Relationship Specialty Start Date End Date Kay Lanier MD [address] [place] [address] PCP - General 06/18/16 10/01/21 documented as of this encounter
--- OUTSIDE RECORDS SUMMARY | 2025-03-30 18:09 | XMS_ITS | Clinical Summary ---
Author Organization [facility] Address [address] [place] [address] Phone Care Team Providers Care Geothermal Powerplant Mechanic Name Role Phone Eloy Gillette MD Primary Care Provider [phone] Allergies Active Allergy Reactions Criticality Noted Date [...] EDT): ? Anxiety/ADHD/executive function disorder. Recommend Learning [employer] or Yasmany Hughes for neurocognitive evaluation. She [...] may do well to see provider at [facility] of her school. I offered a diagnostic consult with behavioral health SECURITY SYSTEMS MANAGER within our group, though this too may [...] topic Medical Devices Not on file Insurance [facility] [employer] [place] [facility] [employer] [place] [facility] [employer] [place] Care Teams Geothermal Powerplant Mechanic Relationship Specialty Start Date End Date Eloy Gillette MD [address] [place] [address] [email or web address] PCP - General Internal Medicine 09/28/21 Additional Source Comments The information contained in this document represents components of the legal health record. It is not the complete legal health record.[facility]
--- OUTSIDE RECORDS SUMMARY | 2025-03-30 18:09 | XMS_ITS | Clinical Summary ---
Author Organization [facility] Address [address] [place] [phone] Phone Care Team Providers Care Refrigeration Systems Installer Name Role Phone Unavailable Primary Care Provider [...] this topic Procedures * Due to [place] law, this organization might not be sharing sensitive test results. Procedure Name Priority Date/Time Associated Diagnosis Comments CHLAMYDIA TRACHOMATIS, AMPLIFIED Routine 12/23/2016 12:00 AM EDT from Last 3 Months or Most Recently Relevant to Health Maintenance Results * Due to [place] law, this organization might not be sharing sensitive test results. * Chlamydia trachomatis, Amplified (12/23/2016 12:00 AM EDT) C.TRACHOMATIS PCR Not Detected CONVERTED LABS Comment: Anne Damian 12/20/2016 04:31:48 PM > , Urine sample labeled and sent to [facility] Negative Reason: Received -[facility] Lab Order Lone Lead Lineman 12/23/2016 Narrative CONVERTED LABS - 12/23/2016 12:00 AM EDT Chlamydia trachomatis detection by PCR us Kay Lanier MD LAB MICROBIOLOGY - GENERAL ORD ERABLES Final Result CONVERTED LABS from Last 3 Months or Most Recently Relevant to Health Maintenance
== END 2025-04-05 10:43 | disposition home or self-care (01) ==
LOC: HO.HWSM 15:06
PROVIDERS: PCP Physician Assistant; Visit Provider Advanced Practice Midwife
DX: Z01.419 Encounter for gynecological examination (general) (routine) without abnormal findings (principal); R73.01 Impaired fasting glucose; E78.5 Hyperlipidemia, unspecified; L65.9 Nonscarring hair loss, unspecified; I10 Essential (primary) hypertension; Z30.09 Encounter for other general counseling and advice on contraception
CPT/HCPCS: 99395; 99459